=== PATIENT | male | born 1970 | race Caucasian/White ===

== ENCOUNTER → 2016-10-03 | Outpatient (CLI) | payer SELFPAY | LOC: RAD 14:28 | PROVIDERS: ATTEND Internal Medicine | DX: M54.2 Cervicalgia (principal); M50.322 Other cervical disc degeneration at C5-C6 level | CPT/HCPCS: 72050 ==

== ENCOUNTER → 2019-09-21 | Outpatient (CLI) | payer BC ==
[2019-09-21 15:36] LABS: A TYPE INFLUENZA AG NEGATIVE (NEGATIVE); B INFLUENZA AG NEGATIVE (NEGATIVE)
== END ==
LOC: OD 14:36
PROVIDERS: ATTEND Internal Medicine
DX: J20.9 Acute bronchitis, unspecified (principal)
CPT/HCPCS: 87804